=== PATIENT | male | born 2000 | race Caucasian/White ===

== ENCOUNTER 2018-09-11 21:22 | Emergency (ER) | payer OTHER, SELFPAY ==
[2018-09-11 21:23] VITALS: BP 132/88; PULSE 87; RESP 15; TEMP 36.8; O2SAT 100; BMI 25.0
--- NOTE | 2018-09-11 21:41 | ED.VISSUMM ---
- ER Visit Summary Date of Service: 09/11/18 Chief Complaint: [Cough] History of Present Illness: The patient is a 18 M [presents to the emergency department with complaint of cough and body aches as well as headache times 3 days. Patient states the cough is nonproductive. Patient complains of some burning in his chest with breathing and cough. Patient denies sick contacts. He denies sore throat or ear pain. He has not had a fever.] Physical Examination: [HEENT-PERRLA, EOMI. Cranial nerves II through XII grossly intact. TMs clear. Mucous membranes moist. No adenopathy. Cardiovascular-regular rate and rhythm without murmur or ectopy Lungs-clear to auscultation, chest wall stable without crepitus or subcu emphysema Abdomen-normoactive bowel sounds, soft, nontender, no rebound or rigidity, no peritoneal signs. Extremities-intact ?4, normal range of motion, normal pulses, atraumatic] Test Results: [None indicated] Emergency Department Course and Treatment: [Patient was dispensed an albuterol MDI and will be given a prescription for Tessalon Perles] Treatment Plan: [Tessalon Perles and advised use ibuprofen for body aches.] Disposition: [Discharged home in stable condition] Impression: [Viral URI] This note was generated with [employer] dictation software. It may contain incorrect words, spelling, and punctuation that were not noted in review of the chart prior to signing ED Disposition - Plan for ED Patient: Referrals: Migel Humphrey MD [Primary Care Provider] -
--- NOTE | 2018-09-11 21:43 | ED.DEP ---
ED Disposition - Plan for ED Patient: Instructions: ED URI Viral Prescriptions: Benzonatate [Tessalon Perle] 200 mg PO TID PRN PRN #20 cap PRN Reason: Cough Referrals: Migel Humphrey MD [Primary Care Provider] - 5-7 Days
[2018-09-11 22:07] VITALS: BP 117/75; PULSE 94; RESP 18; O2SAT 97
== END 2018-09-11 22:08 | disposition home or self-care (01) ==
LOC: ED 21:48
PROVIDERS: Emergency Provider Emergency Medicine; Family Provider Pediatrics; PCP Pediatrics
DX: J06.9 Acute upper respiratory infection, unspecified (principal)
CPT/HCPCS: 94640; 99282

== ENCOUNTER 2024-08-04 08:40 | Emergency (ER) | payer BC, SELFPAY ==
[2024-08-04 08:40] VITALS: BP 138/73; PULSE 83; RESP 15; TEMP 36.4; O2SAT 100; BMI 29.2
--- NOTE | 2024-08-04 08:55 | EKG12_ITS ---
Test Reason : CP Blood Pressure : */* mmHG Vent. Rate : 83 BPM Atrial Rate : 83 BPM P-R Int : 170 ms QRS Dur : 84 ms QT Int : 352 ms P-R-T Axes : 47 64 28 degrees QTcB Int : 413 ms Normal sinus rhythm Normal ECG Confirmed by NINO MANTILLA, NIDA ([id number]), commercial production editor GONZÁLEZ HSU ([id number]) on 08/09/2024 7:12:13 AM Referred By: ARJUN Confirmed By: NIDA ONEILL MD
--- NOTE | 2024-08-04 08:56 | ED.VIS.CHEST ---
HPI History of Present Illness Chief Complaint: Chest Pain Informant: patient Narrative Narrative: 23-year-old male presenting to the emergency room with a chief complaint of chest pain. Patient states that 1 week ago began to have a sore throat and then over last weekend developed cough some rhinorrhea. States that throughout the week he has felt some pins in his chest but have been otherwise doing okay. No fevers vomiting diarrhea leg swelling. He states that last night while laying in bed he developed a sharp tightness in his central chest that lasted about 3 minutes resolved. He had a couple more episodes during the night. This morning he spoke with his mom was taken to urgent care where they advised him to come to emergency for evaluation. He notes he is an otherwise healthy individual. He is a non-smoker. PFSH PFSH Home Medications ?Medication ?Instructions ?Recorded ?Last Taken ?Type NK 08/04/24 Unknown History Allergy/AdvReac Type Severity Reaction Status Date / Time No Known Allergies Allergy Verified 08/04/24 08:42 Social History Smoking Status: Current every day smoker tobacco type: smokeless tobacco ROS ROS ED Constitutional Constitutional ED: Denies chills, fever(s) or weight loss Eyes Eyes: Denies change in vision or diplopia ENT ENT ED: Reports rhinorrhea and sore throat; Denies ear pain Cardiovascular Cardiovascular: Reports chest pain; Denies orthopnea, palpitations or racing heartbeat Respiratory/Chest Respiratory/Chest: Reports cough; Denies dyspnea or orthopnea Gastrointestinal Gastrointestinal: Denies abdominal pain, diarrhea, nausea or vomiting Genitourinary Genitourinary ED: Denies dysuria, hematuria or urinary frequency Musculoskeletal Musculoskeletal: Denies arthralgias or myalgias Integumentary Denies abscess or rash Neurologic Neurologic: Denies headache(s) or weakness Psychiatric Psychiatric: Denies anxiety, depression, suicidal ideation or suicidal thoughts Endocrine Endocrinology: Denies polydipsia, polyphagia or polyuria Allergic/Immunologic Allergic/Immunologic ED: Denies mouth swelling, tongue swelling or urticaria EXAM Physical Exam Const Vital Signs: 08/04/24 08:40 08/04/24 08:55 08/04/24 09:40 Temperature 97.6 F L Temperature Source Temporal Pulse Rate 83 74 Respiratory Rate 15 14 Respiratory Effort Normal Non-Labored Blood Pressure 138/73 H 110/74 Blood Pressure Mean 94 86 Pulse Ox 100 97 Oxygen Delivery Method Room Air Room Air 08/04/24 10:00 08/04/24 10:18 Temperature 98.3 F Temperature Source Pulse Rate 73 73 Respiratory Rate 19 H 19 H Respiratory Effort Blood Pressure 111/68 111/68 Blood Pressure Mean 82 82 Pulse Ox 96 96 Oxygen Delivery Method Room Air Positive well nourished and well developed General Appearance ED: well developed HEENT Reports normocephalic, head/scalp atraumatic and moist mucous membranes HEENT Narrative: Clear rhinorrhea postnasal drip. Mild cobblestoning of the posterior pharynx dry cough Eyes PERRL and EOMs intact bilaterally Neck no lymphadenopathy, supple and no JVD Resp normal respiratory effort and clear to auscultation bilaterally Cardio regular rate, regular rhythm and no murmurs GI normal to inspection, nondistended, normoactive bowel sounds and non-tender Palpation: soft Back/Spine no CVA tenderness and normal ROM Extremity normal to inspection General Extremety ED: Negative for edema General Extremity: Negative for edema Neuro oriented x3 and CN's II-XII intact bilaterally Sensorium / Orientation: alert Motor Exam: strength 5/5 throughout Psych mental status grossly normal Mood & Affect: Negative for depressed or tearful Skin no rashes or lesions noted and no wounds MDM MDM MDM Narrative Medical decision making narrative: Differential diagnosis includes but not limited to acute coronary syndrome cardiac dysrhythmia pulmonary embolism pneumonia bronchospasm esophagitis/GERD pleural effusion pneumothorax My independent interpretation of the chest x-ray is no acute process. White count is 8.2 hemoglobin 15 D-dimer is less than 0.27 troponin is 4. Normal BMP. EKG is in normal sinus rhythm. He said no events on the monitor. Given the above workup I believe the patient can be discharged home. Difficult to say exactly what the patient's experience last night but I am not seeing evidence of dissection/aneurysm pulmonary embolism cardiac dysrhythmia pneumonia CHF pleural effusion pneumothorax. History & Record Review Discussion w/independent historian: Patient and Family (Father) Lab Data Attestation: I reviewed the patient's lab results. Labs: Laboratory Results - last 24 hr 08/04/24 08:59 WBC 8.2 RBC 5.05 Hgb 15.0 Hct 43.3 MCV 85.7 MCH 29.7 MCHC 34.6 RDW Std Deviation 38.8 RDW Coeff of Kandice 12.5 Plt Count 180 MPV 9.6 Immature Gran % (Auto) 0.200 Neut % (Auto) 65.3 Lymph % (Auto) 22.7 [place] % (Auto) 7.5 Eos % (Auto) 3.8 Baso % (Auto) 0.5 Absolute Neuts (auto) 5.4 Absolute Lymphs (auto) 1.87 Nucleated RBC % 0 D-Dimer Quant (PE/DVT) < 0.27 L Sodium 137 Potassium 4.3 Chloride 106 Carbon Dioxide 27.0 Anion Gap 4 L BUN 12 Creatinine 0.94 Estim Creat Clear Calc 145.55 Est GFR (MDRD) Af Amer 125 Est GFR (MDRD) Non-Af 103 BUN/Creatinine Ratio 12.8 Glucose 93 Calcium 9.1 Troponin I High Sens 4 Radiography Diagnostic Testing: Clinical Impression(s) from Imaging Studies Chest X-Ray 08/04/24 09:53 IMPRESSION: Normal x-ray examination of the chest. Electronically Signed: Wally Bey MD at 10:03 EST , EKG Initial EKG: Attestation: I personally reviewed and interpreted this EKG as follows: Comments: Normal sinus rhythm ventricular rate of 83 bpm Discharge Plan Triage Chief Complaint: Chest Pain ED Provider: Topher Preston Dx/Rx/DC Orders Clinical Impression: Chest pain, Viral URI with cough Instructions: ED Chest Pain, Uncertain Cause Prescriptions: No Action NK Stand Alone Forms: Work / School Excuse Primary Care Provider: Care Physician,No Primary Referrals: Migel Humphrey MD [Non-Staff] - Print Language: Romanian Disposition Disposition: Home, Self Care Discharge Date/Time: 08/04/24 10:23
[2024-08-04 09:07] LABS: Absolute Lymphocyte Count 1.87 X10^3/uL (0.83-4.51); Absolute Neutrophil Count 5.4 X10^3/uL (2.0-7.7); Basophil# 0.04 X10^3/uL; Basophil% 0.5 % (0-1); Eosinophil# 0.31 X10^3/uL; Eosinophils% 3.8 % (0-5); Hematocrit 43.3 % (40-54); Lymphocyte # 1.87 X10^3/ul (0.83-4.51); Lymphocyte % 22.7 % (19-41); Mean Corp Hgb Conc 34.6 g/dL (32-36); Mean Corpuscular Hgb 29.7 pg (27.0-32.0); Mean Corpuscular Volume 85.7 fL (80-94); Mean Platelet Vol. 9.6 fl (6.2-12.0); Monocyte# 0.62 X10^3/uL; Monocyte% 7.5 % (0-10); NRBC Flagged by Analyzer 0 % (0-5); Neutrophil # 5.37 X10^3/uL (2.7-7.7); Neutrophil % 65.3 % (47-70); Platelet Count 180 K/mm3 (150-450); RBC Distribution Width CV 12.5 % (11.6-14.6); RBC Distribution Width SD 38.8 fl (35.1-43.9); Red Blood Count 5.05 M/mm3 (4.6-6.2); White Blood Count 8.2 K/mm3 (4.4-11.0)
[2024-08-04 09:31] LABS: Anion Gap 4 (5-15); BUN 12 mg/dL (7-18); BUN/Creat Ratio 12.8 RATIO (10-20); Calcium,Total 9.1 mg/dL (8.5-10.1); Chloride 106 mmol/L (98-107); Creatinine, Serum 0.94 mg/dL (0.70-1.30); EST Glomerular Filtration Rate 103 mL/min (>60); Est Glom Filt Rate - Afr Amer 125 mL/min (>60); Estimated Creatinine Clearance 145.55 ml/min; Glucose 93 mg/dL (74-106); Potassium 4.3 mmol/L (3.5-5.1); Sodium Level 137 mmol/L (136-145); Troponin-I HS 4 pg/mL (3.0-78.0)
[2024-08-04 09:40] VITALS: BP 110/74; PULSE 74; RESP 14; O2SAT 97
[2024-08-04 09:49] LABS: D-Dimer Quantitative (DVT/PE) < 0.27 FEU/ug/m (0.27-0.49)
--- NOTE | 2024-08-04 09:53 | RAD_ITS ---
STUDY: X-RAY CHEST REASON FOR EXAM: Male, 23 years old. Cough TECHNIQUE: Single AP portable view of the chest. COMPARISON: None. FINDINGS: EKG electrodes are seen. The lungs are clear and expanded. There is no demonstrated pleural abnormality. Normal size heart. Normal mediastinum and vicky. Normal visualized pulmonary arteries. Normal visualized aortic arch and descending thoracic aorta. Normal visualized thoracic spine. Normal visualized ribs, clavicles, and shoulders. There is no demonstrated abnormality of the visualized soft tissue structures of the upper abdomen. RAD/Chest 1 View (Portable) IMPRESSION: Normal x-ray examination of the chest. Electronically Signed: Wally Bey MD at 10:03 [facility] ,
[2024-08-04 10:00] VITALS: BP 111/68; PULSE 73; RESP 19; O2SAT 96
--- NOTE | 2024-08-04 10:08 | CM.ED ---
Social work Reason for referral: no PCP Referral source: case find This SW identified patient's lack of PCP and need for resources. This SW entered patient's room, introducing self and role at [facility]. Patient welcomed SW visit and gave permission to speak with patient's father, Glenn, who was bedside. Patient confirmed lacking a PCP and stated not often needing to go to a doctor. Patient stated last seeing patient's cotton washer, Dr. Humphrey, about 12-13 years ago. Patient accepted resources of [facility] Provider Directory and Katerine Penny information. Patient denied further needs at this time. Rianna Yates, SWING RIDE OPERATOR, AUTOMOTIVE DESIGNER
[2024-08-04 10:18] VITALS: BP 111/68; PULSE 73; RESP 19; TEMP 36.8; O2SAT 96
== END 2024-08-04 10:23 | disposition home or self-care (01) ==
PROVIDERS: Emergency Provider Emergency Medicine; Visit Provider Emergency Medicine
DX: R07.9 Chest pain, unspecified (principal); J06.9 Acute upper respiratory infection, unspecified; R05.9 Cough, unspecified; F17.220 Nicotine dependence, chewing tobacco, uncomplicated
CPT/HCPCS: 71045; 80048; 84484; 85025; 85379; 93005; 99284; A4216